=== PATIENT | male | born 1970 | race Caucasian/White ===

== ENCOUNTER 2023-01-01 10:11 | Day surgery (SDC) | payer BC ==
[2022-12-26 17:04] VITALS: BMI 26.6
[2023-01-01 10:54] VITALS: TEMP 98.3
[2023-01-01] MEDS: LACTATED RINGERS 1,000 ML IV SCH ×2 (10:54→12:02)
[2023-01-01] MEDS ORDERED: LIDOCAINE 2% INJ 20 MG/ML (2 ML VIAL) ONE (12:03)
[2023-01-01] MEDS ORDERED: PROPOFOL 10 MG/ML 20 ML VIAL IV ONE (12:03)
--- NOTE | 2023-01-01 12:15 | P.PCN ---
Date of Procedure: 01/01/23 Procedure(s) Performed: BRIEF HISTORY: Patient is a 52-year-old, pleasant, male scheduled for an upper endoscopy as a part of evaluation of recent episode of acute food impaction that happened 2 months ago for which she underwent an upper endoscopy with dilation. PROCEDURE PERFORMED: Esophagogastroduodenoscopy. PREOPERATIVE DIAGNOSIS: Recent episode of food impaction 2 months ago and intermittent dysphagia to solids. IV sedation per anesthesia. PROCEDURE: After informed consent was obtained, the patient was brought into the endoscopy unit. IV sedation was administered by Anesthesia under continuous monitoring. Initially the Olympus GIF-140 video endoscope was inserted into the mouth. Esophagus intubated without any difficulty. It was gradually advanced into the stomach and duodenum and carefully examined. The bulb and the second part of the duodenum appeared normal. The scope at this time was withdrawn to the stomach, adequately insufflated with air, and upon careful examination, mucosa of the antrum, body, cardia and the fundus appeared normal. The scope was then withdrawn into the esophagus. Small hiatal hernia noted. The GE junction was located at 39 cm from the incisors. The mucosal folds in the mid and distal esophagus appeared thickened with erythema and multiple superficial mucosal rings in the mid and distal esophagus with no dominant stricture identified. No dilation was performed. Multiple biopsies were done from the mid and distal esophagus to rule out years of age esophagitis. The proximal cervical esophagus appeared normal and the patient tolerated the procedure well. IMPRESSION: 1. Thickened esophageal folds involving the entire esophagus with mucosal erythema and multiple superficial mucosal rings with no dominant stricture status post multiple biopsies to rule out eosinophilic esophagitis. 2. Small hiatal hernia.. RECOMMENDATIONS: The findings of this examination were discussed with the patient as well his family. He was advised to follow with the biopsy results. In the meantime recommended starting back on omeprazole 40 mg daily and follow antrum reflux measures. Follow up in office in 2 weeks
[2023-01-01 12:59] VITALS: BP 149/83; PULSE 82; RESP 18
== END 2023-01-01 13:08 | disposition home or self-care (01) ==
LOC: ORWHC2ENDO 10:11
PROVIDERS: ATTEND Internal Medicine Gastroenterology
DX: K20.90 Esophagitis, unspecified without bleeding (principal); K44.9 Diaphragmatic hernia without obstruction or gangrene; Z79.899 Other long term (current) drug therapy
CPT/HCPCS: 88305; 43239; J2704; J2001